=== PATIENT | male | born 1980 | race Caucasian/White ===

== ENCOUNTER 2020-02-06 16:30 | Emergency (ER) | payer OTHER ==
[~2020-02-06] VITALS: Ht 154.9 cm; Wt 90.9 kg
[2020-02-06] MEDS ORDERED: PERTUSS(ACELL),DIPH,TET VAC/PF 0.5 ML VIAL IM ONE (17:15)
[2020-02-06] MEDS ORDERED: BACITRACIN 0.9 GM PACKET OINTMENT TP ONE (17:15)
[2020-02-06] MEDS ORDERED: LIDOCAINE 1% 10 ML VIAL INJ ONE (17:15)
[2020-02-06 19:15] VITALS: BP 116/68
[2020-02-06] MEDS ORDERED: IBUPROFEN 600 MG TABLET PO ONE (19:45)
[2020-02-06] MEDS ORDERED: ACETAMINOPHEN 500 MG TABLET PO ONE (19:45)
== END 2020-02-06 20:10 | disposition home or self-care (01) ==
LOC: EMS 16:30
DX: S01.01XA Laceration without foreign body of scalp, initial encounter (principal); S60.221A Contusion of right hand, initial encounter; S20.212A Contusion of left front wall of thorax, initial encounter; Y04.2XXA Assault by strike against or bumped into by another person, initial encounter; Y93.89 Activity, other specified; Y92.89 Other specified places as the place of occurrence of the external cause; Y99.8 Other external cause status
CPT/HCPCS: 12004; 70450; 71101; 73130; 90471; 90715; 99284; J3490

== ENCOUNTER 2020-02-13 13:15 | Emergency (ER) | payer OTHER ==
[~2020-02-13] VITALS: Ht 177.8 cm; Wt 90.0 kg
[2020-02-13 13:26] VITALS: BP 112/92
== END 2020-02-13 14:13 | disposition home or self-care (01) ==
LOC: EMS 13:20
DX: S01.91XD Laceration without foreign body of unspecified part of head, subsequent encounter (principal); X58.XXXD Exposure to other specified factors, subsequent encounter
CPT/HCPCS: Z7502

== ENCOUNTER 2020-02-15 15:58 | Emergency (ER) | payer OTHER ==
[~2020-02-15] VITALS: Ht 177.8 cm; Wt 90.0 kg
[2020-02-15 15:59] VITALS: BP 130/79
== END 2020-02-15 17:14 | disposition home or self-care (01) ==
LOC: EMS 15:58
DX: S01.01XD Laceration without foreign body of scalp, subsequent encounter (principal); X58.XXXD Exposure to other specified factors, subsequent encounter
CPT/HCPCS: Z7502

== ENCOUNTER 2020-05-03 12:28 | Emergency (ER) | payer OTHER ==
[~2020-05-03] VITALS: Ht 177.8 cm; Wt 79.5 kg
[2020-05-03] MEDS ORDERED: ACETAMINOPHEN 500 MG TABLET PO ONE (14:00)
[2020-05-03] MEDS ORDERED: KETOROLAC TROMETHAMINE 30 MG/ML VIAL IM ONE (14:00)
[2020-05-03] MEDS ORDERED: AMOX TR/POT CLAV 875 MG/125 MG TABLET PO ONE (14:00)
[2020-05-03 14:33] VITALS: BP 137/78
== END 2020-05-03 14:36 | disposition home or self-care (01) ==
LOC: EMS 12:32
DX: K08.89 Other specified disorders of teeth and supporting structures (principal)
CPT/HCPCS: 96372; 99283; J1885

== ENCOUNTER 2020-05-11 09:56 | Emergency (ER) | payer OTHER ==
[~2020-05-11] VITALS: Ht 177.8 cm; Wt 95.5 kg
[2020-05-11 09:59] VITALS: BP 139/84
[2020-05-11] MEDS ORDERED: TraMADol HCL 50 MG TABLET PO ONE (11:15)
== END 2020-05-11 11:52 | disposition home or self-care (01) ==
LOC: EMS 09:56
DX: K08.89 Other specified disorders of teeth and supporting structures (principal); F17.210 Nicotine dependence, cigarettes, uncomplicated

== ENCOUNTER 2020-06-03 17:53 | Emergency (ER) | payer OTHER ==
[~2020-06-03] VITALS: Ht 175.3 cm; Wt 81.8 kg
[2020-06-03] MEDS ORDERED: IBUPROFEN 400 MG TABLET PO ONE (20:00)
[2020-06-03 20:42] VITALS: BP 141/81
[2020-06-03] MEDS ORDERED: OxyCODONE HCL/ACETAMINOPHEN 5-325 MG TABLET PO ONE (21:00)
== END 2020-06-03 21:13 | disposition home or self-care (01) ==
LOC: EMS 17:53
DX: K02.9 Dental caries, unspecified (principal); F17.210 Nicotine dependence, cigarettes, uncomplicated; F12.90 Cannabis use, unspecified, uncomplicated
CPT/HCPCS: 99283

== ENCOUNTER 2020-10-03 10:40 | Emergency (ER) | payer OTHER | END 2020-10-03 11:20 | disposition left against medical advice (07) | LOC: EMS 10:40 | DX: L08.9 Local infection of the skin and subcutaneous tissue, unspecified (principal); Z53.21 Procedure and treatment not carried out due to patient leaving prior to being seen by health care provider ==

== ENCOUNTER 2021-11-06 11:54 | Emergency (ER) | payer OTHER ==
[~2021-11-06] VITALS: Ht 177.8 cm; Wt 103.6 kg
[2021-11-06] MEDS ORDERED: CEPH-558 PO (13:56)
[2021-11-06] MEDS ORDERED: IBUP-2070 PO (13:56)
[2021-11-06] MEDS ORDERED: DOXY-354 PO (13:56)
[2021-11-06] MEDS ORDERED: OxyCODONE HCL/ACETAMINOPHEN 5-325 MG TABLET PO ONE (14:00)
[2021-11-06 14:14] VITALS: BP 132/80
== END 2021-11-06 14:45 | disposition home or self-care (01) ==
LOC: EMS 11:56
DX: S91.331A Puncture wound without foreign body, right foot, initial encounter (principal); T63.511A Toxic effect of contact with stingray, accidental (unintentional), initial encounter; F17.210 Nicotine dependence, cigarettes, uncomplicated; Y92.832 Beach as the place of occurrence of the external cause
CPT/HCPCS: 99283

== ENCOUNTER 2021-12-10 05:12 | Emergency (ER) | payer OTHER ==
[~2021-12-10] VITALS: Ht 177.8 cm; Wt 104.5 kg
[~2021-12-10 05:12] MED LIST: CEPH-558 PO; DOXY-354 PO; IBUP-2070 PO
[2021-12-10] MEDS ORDERED: IBUP-2070 PO (06:28)
[2021-12-10] MEDS ORDERED: PENI500T2 PO (06:29)
[2021-12-10] MEDS ORDERED: OxyCODONE HCL/ACETAMINOPHEN 5-325 MG TABLET PO ONE (06:30)
[2021-12-10] MEDS ORDERED: PENICILLIN V POTASSIUM 500 MG TABLET PO ONE (06:30)
[2021-12-10] MEDS ORDERED: IBUPROFEN 800 MG TABLET PO ONE (06:30)
[2021-12-10] MEDS ORDERED: PERCT PO (06:30)
[2021-12-10] MEDS ORDERED: CEPH-558 PO (06:38)
[2021-12-10] MEDS ORDERED: CEPHALEXIN MONOHYDRATE 500 MG CAPSULE PO ONE (06:45)
[2021-12-10 06:47] VITALS: BP 119/75
== END 2021-12-10 06:47 | disposition home or self-care (01) ==
LOC: EMS 05:13
DX: K02.9 Dental caries, unspecified (principal); K04.7 Periapical abscess without sinus; F10.20 Alcohol dependence, uncomplicated; F12.90 Cannabis use, unspecified, uncomplicated; F17.210 Nicotine dependence, cigarettes, uncomplicated
CPT/HCPCS: 99284; Z7502; Z7610

== ENCOUNTER 2022-02-01 23:35 | Emergency (ER) | payer OTHER ==
[~2022-02-01] VITALS: Ht 177.8 cm; Wt 102.3 kg
[~2022-02-01 23:35] MED LIST changes: +PENI500T2 PO; +PERCT PO
[2022-02-02 02:39] VITALS: BP 118/76
[2022-02-02] MEDS ORDERED: KETOROLAC TROMETHAMINE 60 MG/2 ML VIAL IM ONE (02:45)
[2022-02-02] MEDS ORDERED: PENICILLIN V POTASSIUM 500 MG TABLET PO ONE (02:45)
[2022-02-02] MEDS ORDERED: OxyCODONE HCL/ACETAMINOPHEN 5-325 MG TABLET PO ONE (02:45)
[2022-02-02] MEDS ORDERED: PENI500T2 PO (03:50)
[2022-02-02] MEDS ORDERED: DOXY-354 PO (04:15)
== END 2022-02-02 04:39 | disposition home or self-care (01) ==
LOC: EMS 23:36
DX: K02.9 Dental caries, unspecified (principal); K04.7 Periapical abscess without sinus; H54.62 Unqualified visual loss, left eye, normal vision right eye; F17.210 Nicotine dependence, cigarettes, uncomplicated; F12.90 Cannabis use, unspecified, uncomplicated; Z88.0 Allergy status to penicillin
CPT/HCPCS: 99283; 96372; J1885

== ENCOUNTER 2023-03-07 09:29 | Emergency (ER) | payer OTHER ==
[~2023-03-07] VITALS: Ht 177.8 cm; Wt 86.4 kg
[~2023-03-07 09:29] MED LIST changes: +IBUP-1492 PO; -IBUP-2070 PO
[2023-03-07] MEDS ORDERED: CLIN300C58 PO (09:38)
[2023-03-07] MEDS ORDERED: KETOROLAC TROMETHAMINE 30 MG/ML VIAL IVP ONE ×2 (10:00→18:45)
[2023-03-07 10:31] LABS: BASOPHILS % (AUTO) 0.6 % (0.0-2.0); EOSINOPHILS % (AUTO) 0.8 % (1.0-6.0); HEMATOCRIT 40.7 % (41-53); HEMOGLOBIN 13.6 g/dL (13.5-17.5); LYMPHOCYTES # (AUTO) 1.6 K/uL (1.0-4.8); LYMPHOCYTES % (AUTO) 13.4 % (22.0-44.0); MEAN CORPUSCULAR HEMOGLOBIN 29.4 pg (26.0-34.0); MEAN CORPUSCULAR HGB CONC 33.4 G/dL (31.0-37.0); MEAN CORPUSCULAR VOLUME 88 fL (80-100); MONOCYTES # (AUTO) 1.1 K/uL (0.1-1.0); MONOCYTES % (AUTO) 9.2 % (2.0-9.0); PLATELET COUNT (AUTO) 299 K/uL (150-450); RED BLOOD CELL COUNT(AUTO) 4.63 MIL/uL (4.50-5.90); RED CELL DISTRIBUTION WIDTH 14.1 % (11.5-14.5); WHITE BLOOD COUNT (AUTO) 11.8 K/uL (4.5-11.0)
[2023-03-07] MEDS ORDERED: SODIUM CHLORIDE 0.9% 100 ML ONE (10:38)
[2023-03-07] MEDS ORDERED: IOHEXOL 350 MG/ML 100 ML VIAL ONE (10:38)
[2023-03-07 10:44] LABS: ANION GAP 9 mmol/L (8-16); CALCIUM, TOTAL 8.8 mg/dL (8.8-10.5); CARBON DIOXIDE 28 mmol/L (22-29); CHLORIDE 101 mmol/L (98-107); CREATININE 0.76 mg/dL (0.60-1.30); GLOMERULAR FILTR. RATE CALC > 60 mL/min (>60); GLUCOSE,RANDOM 102 mg/dL (70-110); POTASSIUM 3.9 mmol/L (3.5-5.1); SODIUM SERUM 138 mmol/L (136-145); UREA NITROGEN, BLOOD 27 mg/dL (7-18)
[2023-03-07] MEDS ORDERED: CLINDAMYCIN 900 MG/D5% WATER 50 ML IV ONE (13:30)
[2023-03-07 14:14] LABS: COVID AG,FIA SOURCE NASAL SWAB
[2023-03-07 14:59] LABS: SARS-COV2 (COVID) ANTIGEN,FIA Negative (Negative)
[2023-03-07 16:37] VITALS: BP 110/69; PULSE 86; RESP 18; TEMP 98.3
== END 2023-03-07 18:56 | disposition short-term general hospital (02) ==
LOC: EMS 09:29
DX: J32.0 Chronic maxillary sinusitis (principal); F17.210 Nicotine dependence, cigarettes, uncomplicated; Z88.0 Allergy status to penicillin; Z20.822 Contact with and (suspected) exposure to COVID-19
CPT/HCPCS: 99285; 96365; 70487; 96375; 87426; 80048; 85025; 36415; 96376; J3490; J1885; Q9967; J7050